=== PATIENT | male | born 1945 | race African-American/Black ===

== ENCOUNTER → 2018-04-22 | Outpatient (CLI) | payer MEDICARE ==
--- NOTE | 2018-04-22 15:09 | RADIOLOGY REPORT (SQ) ---
EXAM DESCRIPTION: ARTERIAL LOWER EXTREM BILAT COMPLETED DATE/TIME: 04/22/2018 1:58 pm REASON FOR STUDY: ULCER L97.512 NON-PRS CHRONIC ULCER OTH PRT RIGHT FOOT W FAT LAYER COMPARISON: None. TECHNIQUE: Dynamic and static cho scale and color images acquired of the lower extremity arteries. Additional selected spectral images recorded. Patient refused ABIs LIMITATIONS: None. FINDINGS: RIGHT LEG: ABIS: Patient refused INFLOW ARTERIES: Normal, no obstruction evident. FEMORAL ARTERIES:Multiphasic waveforms. Normal, no velocity elevation to suggest focal stenosis. Norm al color Doppler evaluation. No aneurysm. POPLITEAL ARTERY:Multiphasic waveforms. Normal, no velocity elevation to suggest focal stenosis. Norm al color Doppler evaluation. No aneurysm. PATENT TIBIOPERONEAL TRUNK AND 3 VESSEL RUNOFF: Posterior tibial artery patent to the ankle. Diffuse ly diseased proximal anterior tibial artery with reconstitution of the dorsalis pedis via collaterals . Peroneal artery not well seen. TBI: Not performed. OTHER: No other significant finding. LEFT LEG: ABIS: Patient refused INFLOW ARTERIES: Normal, no obstruction evident. FEMORAL ARTERIES:Multiphasic waveforms. Normal, no velocity elevation to suggest focal stenosis. Norm al color Doppler evaluation. No aneurysm. POPLITEAL ARTERY:Multiphasic waveforms. Normal, no velocity elevation to suggest focal stenosis. Norm al color Doppler evaluation. No aneurysm. PATENT TIBIOPERONEAL TRUNK AND 3 VESSEL RUNOFF: Patent posterior tibial artery to the ankle. Anterio r tibial artery is patent with biphasic flowed into the dorsalis pedis artery. Peroneal artery not w ell seen. TBI: Not performed. OTHER: No other significant finding. IMPRESSION: Small vessel disease in the right and left calf, peroneal arteries are not well seen liss aterally. Patent bilateral posterior tibial arteries down to the ankles. Diffusely diseased right a nterior tibial artery with reconstitution of the distal anterior tibial artery/dorsalis pedis via col laterals. Patent left anterior tibial artery COMMENT: [facility] NORMAL: Greater than 1.0 MINIMAL DISEASE: 0.9 to 1.0 CLAUDICATION: 0.5 to 0.9 SEVERE ARTERIAL DISEASE: Less than 0.5 [facility] NORMAL: Greater than 1.0 (1.2 If Heavy Calcifications) NORMAL TO MILD ISCHEMIA: 0.8 to 1.0 MODERATE ISCHEMIA: 0.4 to 0.8 SEVERE ISCHEMIA: Less than 0.4 TECHNICAL DOCUMENTATION: GRADY ID: [id number] [employer]- All Rights Reserved Reading location - IP/workstation name: [email or web address]
== END ==
LOC: SP 13:07
PROVIDERS: ATTEND Preventive Medicine Undersea and Hyperbaric Medicine
DX: L97.512 Non-pressure chronic ulcer of other part of right foot with fat layer exposed (principal)
CPT/HCPCS: 93925